=== PATIENT | female | born 1960 | race Caucasian/White ===

== ENCOUNTER 2017-12-14 14:19 | Emergency (ER) | payer SELFPAY ==
--- NOTE | 2017-12-14 14:39 | EDM.PDOC ---
ED HPI GENERAL MEDICAL PROBLEM - General Chief Complaint: Cardiovascular Problem Stated Complaint: HIGH BLOOD PRESSURE, FROM COURT HOUSE Time Seen by Provider: 12/14/17 14:39 Source of Information: Reports: Patient, Family, RN, RN Notes Reviewed History Limitations: Reports: No Limitations - History of Present Illness INITIAL COMMENTS - FREE TEXT/NARRATIVE: Pt was [place] the court [facility] the [facility] and was sent to the ER because her blood pressure was 152/100. Pt states she feels completely well, denies CP, SOB, palpitations, headache, visual changes, or edema. Onset: Unknown/Unsure Associated Symptoms: Reports: No Other Symptoms - Related Data Allergies Allergy/AdvReac Type Severity Reaction Status Date / Time No Known Allergies Allergy Verified 12/14/17 14:30 Home Meds: Home Meds . [No Known Home Meds] 12/14/17 [History] Past Medical History Musculoskeletal History: Reports: Osteoarthritis Neurological History: Reports: Migraines Social & Family History - Family History Family Medical History: Noncontributory - Tobacco Use Smoking Status *Q: Current Every Day Smoker Years of Tobacco use: 31 Packs/Tins Daily: 2.5 - Caffeine Use Caffeine Use: Reports: Coffee, Energy Drinks - Recreational Drug Use Recreational Drug Use: No - Living Situation & Occupation Living situation: Reports: with Family ED ROS GENERAL - Review of Systems Review Of Systems: ROS reveals no pertinent complaints other than HPI. ED EXAM, GENERAL - Physical Exam Exam: See Below Exam Limited By: No Limitations General Appearance: Alert, WD/WN, No Apparent Distress Eye Exam: Bilateral Eye: Normal Inspection Ears: Normal External Exam, Hearing Grossly Normal Nose: Normal Inspection Throat/Mouth: Normal Inspection Head: Atraumatic, Normocephalic Neck: Normal Inspection, Supple, Non-Tender, Full Range of Motion Respiratory/Chest: No Respiratory Distress, Lungs Clear, Normal Breath Sounds, No Accessory Muscle Use, Chest Non-Tender Cardiovascular: Regular Rate, Rhythm Neurological: Alert, Oriented, CN II-XII Intact, Normal Cognition, Normal Gait, No Motor/Sensory Deficits Psychiatric: Normal Mood Skin Exam: Warm, Dry, Intact Course - Vital Signs Last Recorded V/S: Last Vital Signs Temp 36.2 C 12/14/17 14:34 Pulse 85 12/14/17 14:34 Resp 18 12/14/17 14:34 BP 152/89 H 12/14/17 14:34 Pulse Ox 95 12/14/17 14:34 - Re-Assessments/Exams Free Text/Narrative Re-Assessment/Exam: 12/14/17 15:00 Pt chooses to have no further work up in ER, and agrees to f/u in clinic for BP evaluation. Departure - Departure Time of Disposition: 15:11 Disposition: Home, Self-Care 01 Condition: Good Clinical Impression: Elevated blood pressure reading without diagnosis of hypertension Instructions: How to Take Your Blood Pressure, Hypertension Forms: ED Department Discharge Additional Instructions: Follow up in clinic for blood pressure evaluation and a physical. Return to ER if you develop chest pain, stroke symptoms, or blood pressure greater the 200 on the top number, or 120 on the bottom number.
== END 2017-12-14 15:18 | disposition home or self-care (01) ==
LOC: DL.ED 14:19
DX: R03.0 Elevated blood-pressure reading, without diagnosis of hypertension (principal); F17.210 Nicotine dependence, cigarettes, uncomplicated
CPT/HCPCS: 99283